=== PATIENT | male | born 1955 | race African-American/Black ===

== ENCOUNTER 2024-12-06 08:47 | Emergency (ER) | payer SELFPAY ==
[2024-12-06 08:49] VITALS: BP 129/88
[2024-12-06] MEDS: TORADOL 30 MG IM (09:44)
--- NOTE | 2024-12-06 10:39 | ED.GENMED ---
History of Present Illness
General
Chief Complaint: Extremity Pain (non-traumatic)
Time Seen by Provider: 12/06/24 09:07
History of Present Illness
History of Present Illness:
Note:
CHIEF COMPLAINT(S)
Right heel pain.
HISTORY OF PRESENT ILLNESS
The patient is a 69-year-old male who presented with pain localized to the right heel. The symptoms began approximately one and a half months ago. The patient has been taking naproxen for the past month for the pain. He describes the pain as
occurring specifically in the area where the Achilles tendon inserts into the heel bone (calcaneus). There is no pain reported in the plantar aspect of the foot or when pressure is applied to bony prominences around the heel, except when walking.
The patient denies pain upon palpation of the bones and the inner part of the foot, as well as no significant discomfort upon moving the toes and foot.
PLAN
1. Obtain an X-ray of the patients foot to evaluate for any underlying bony abnormalities.
2. Administer a non-narcotic analgesic injection to aid in pain management.
3. Provide the patient with a medical walking boot for immobilization of the foot to relieve symptoms.
4. Refer the patient to an resource recovery specialist for further evaluation and management.
5. Re-evaluate after the X-ray results are available.
PHYSICAL EXAM
General: Alert, no acute distress.
Musculoskeletal: Tenderness noted at the insertion of the Achilles tendon onto the calcaneus. Normal range of motion of the toes and foot observed. No other tenderness or abnormalities noted in the surrounding areas.
PROBLEM LIST
Acute:
- Achilles tendinitis
DIFFERENTIAL DIAGNOSIS
The differential diagnosis includes, in no particular order and is not limited to:
1. Achilles tendinitis
2. Plantar fasciitis
3. Retrocalcaneal bursitis
4. Calcaneal stress fracture
5. Posterior tibialis tendinitis
6. Bone spur
7. Tarsal tunnel syndrome
8. Achilles tendon rupture
9. Gout
10. Osteoarthritis of the ankle
Disposition:
SUMMARY OF ENCOUNTER
The patient presented with right heel pain, suspected to be due to a combination of a small heel spur and Achilles tendinitis. Imaging was reviewed, revealing a very small bony growth (heel spur) that may or may not contribute significantly to the
symptoms.
PLAN
Patient was advised to use a medical walking boot to help alleviate symptoms. The use of [id number]-qfo-[id number] ibuprofen (Motrin) was recommended for pain management, with instructions to take it at prescription strength if needed.
PATIENT EDUCATION AND COUNSELING
The patient was informed about the potential causes of their heel pain, including the small heel spur and Achilles tendinitis. Instructions were provided on the use of the medical walking boot and taking ibuprofen for pain relief.
FOLLOW-UP INSTRUCTIONS
The patient was given the name of a cnc specialist for follow-up, Dr. Prasanna Perez, as noted in the discharge paperwork.
MEDICATION RECONCILIATION
The patient was advised to take ibuprofen (Motrin) at home for pain management. The use of three to four qtjy-bjb-fbowlmm tablets to achieve prescription strength was suggested.
MEDICAL DECISION MAKING
- Number and Complexity of Problems Addressed: Acute symptoms attributed to right heel pain potentially from Achilles tendinitis and/or a heel spur. Chronic conditions affecting care: None mentioned. Differential diagnosis includes Achilles
tendinitis, bone spur.
- Data:
Category 1:
My independent interpretation of the x-rays revealed a small bony growth (heel spur) at the heel which may contribute to the patient�s heel pain but is unclear if it entirely correlates with the symptoms.
- Risk:
Consideration of admission/observation was not explicitly mentioned. Prescription medication management for pain relief with Motrin advised.
DIAGNOSIS
Achilles tendinitis (M76.61)
Heel spur (M77.30)
Past History
Past History
ED Past Medical History: Hypercholesterolemia and Other (BPH)
ED Past Surgical History: None
Social History
Tobacco: Non-smoker
Alcohol: Occasional
Drug: None
Living: with family
Employment: Employed
Phy Exam
Physical Exam
Physical Exam:
See HPI
Course
Orders/Labs/Results
Orders:
Orders
12/06/24 09:15
CR Heel/os Calcis - Left 2 Vw* Urgent
Comment:
Reason For Exam: pain insertion achilles
12/06/24 09:17
boot [Ortho Boot Left- Treatment] ONCE
Short or tall?: Short
Ketorolac [Toradol] 30 mg IM NOW STA
Vital Signs
Initial and Last Documented VS:
Initial Vital Signs
Temp Pulse Resp BP Pulse Ox
37.1 C 82 16 129/88 97
12/06/24 08:49 12/06/24 08:49 12/06/24 08:49 12/06/24 08:49 12/06/24 08:49
Last Documented Vital Signs
Temp Pulse Resp BP Pulse Ox
37.1 C 82 16 129/88 97
12/06/24 08:49 12/06/24 08:49 12/06/24 08:49 12/06/24 08:49 12/06/24 08:49
*Pulse Oximetry
SaO2: 97
Oxygen Mode of Delivery: Room air
Patient hypoxic: no
*Critical Care Note
Total Time (30-74mins, 75-104mins- exclusive of procedures): Not Applicable
ED Attending Note
-
Portions of this chart may have been created with voice recognition software.� Occasional wrong word or��sound alike� substitutions may have occurred due to the inherent limitations of voice recognition software.
Discharge Plan
Departure
Patient Disposition: Home (Routine Discharge)
Date of Disposition: 12/06/24
Time of Disposition: 10:31
Patient with high blood pressure during this ER visit?: Yes
Discharge Problem:
Heel spur
Instructions: Heel Spurs, BLOOD PRESSURE
Prescriptions:
No Action
dicyclomine 10 MG capsule
10 mg PO QIDPRN PRN (Reason: abdominal pain) Qty: 12 0RF
metronidazole 500 MG tablet
500 mg PO TID Qty: 30 0RF
levofloxacin 500 MG tablet
500 mg PO DAILY Qty: 10 0RF
Referrals:
Prasanna Guerrero DPM [Specified Professional Personl, Podiatry]
Delmy Sanchez DO [Family Provider, Family Practice]
Activity Restrictions/Additional Instructions:
I have given you the contact information for a local cnc specialist, Dr. Guerrero -I recommend that you call their office to arrange follow-up. I recommend 3-4 dpae-itn-favseng ibuprofen (Motrin) every 8 hours with food for a few days. Return here if
worse.
Interventions
Interventions:
*Nursing Disposition Last Done: 12/06/24 10:37
ED-Musculoskeletal Assessment Last Done: 12/06/24 10:09
Discharge Date and Time
Print Language: ITALIAN
== END 2024-12-06 10:39 | disposition home or self-care (01) ==
LOC: EMR 08:47
PROVIDERS: EMERGENCY PHYSICIAN Emergency Medicine; FAMILY PHYSICIAN Family Medicine
DX: M77.32 Calcaneal spur, left foot (principal); E78.00 Pure hypercholesterolemia, unspecified
CPT/HCPCS: 96372; 99284; 73650